=== PATIENT | male | born 1975 | race Hispanic/Latino ===

== ENCOUNTER 2023-02-24 18:49 | Emergency (ER) | payer OTHER ==
[~2023-02-24] VITALS: Ht 177.8 cm; Wt 92.0 kg
[2023-02-24 19:20] VITALS: BP 142/84
== END 2023-02-24 20:50 | disposition home or self-care (01) ==
LOC: ED 18:49
DX: S61.012A Laceration without foreign body of left thumb without damage to nail, initial encounter (principal); W23.2XXA Caught, crushed, jammed or pinched between a moving and stationary object, initial encounter